=== PATIENT | female | born 1975 | race Caucasian/White ===

== ENCOUNTER 2016-10-08 18:52 | Emergency (ER) | payer SELFPAY ==
--- NOTE | 2016-10-09 04:26 | ER ---
ADMIT: 10/08/2016 RM/LOC: ER [facility] MR#: [id number] [address] [id number] [address] [place] [id number] Emergency Room Report SEX: F AGE: 40 : 1975 DATE: 10/08/2016 The patient is a 40-year-old female with hepatitis C, anxiety, previous ectopic or which she describes as possible ovarian torsion, comes in with right groin pain. No urinary symptoms, vomiting, or vaginal discharge. Exam remarkable for nontoxic, afebrile, and obese female, who appears to be under the influence of methamphetamine. Ultrasound abdomen and pelvis negative for torsion or hernia. HCG negative. Urine 1+ protein, 2+ blood, and 11 rbc's, the patient currently menstruating, cath specimen. Advised follow up PCP in Saturday when she is home. Ehsan Isabel MD/ tasha JOB #: [id number] CC: Aroldo Douglass MD, Attending Physician Clinton Fair MD, Family Physician Clinton Fair MD
== END 2016-10-08 20:58 | disposition home or self-care (01) ==
LOC: ER 18:52
DX: R10.31 Right lower quadrant pain (principal); F41.9 Anxiety disorder, unspecified; F17.210 Nicotine dependence, cigarettes, uncomplicated; Z88.8 Allergy status to other drugs, medicaments and biological substances